=== PATIENT | female | born 1935 | race Caucasian/White ===

== ENCOUNTER → 2018-08-10 | Outpatient (CLI) | payer MEDICARE ==
[~2018-08-10] MED LIST: ARICEPT; ASA 81 MG; ASPI81CH PO; CARI350 PO; CITA20 PO; CLOP75 PO; DIPY75 PO; DONE10 PO; FLUO20 PO; FURO40 PO; GEMF600 PO; HYDPAM50 PO; MICO2TCA TOP; NITR100CA PO; Namenda10 MG PO; OXYACE5T PO; PLAVIX; POTCHL10ER PO; Prozac40 MG PO; SOMA; TRAZ50 PO; TYLENOL ARTHRITIS
== END | disposition home or self-care (01) ==
LOC: PLD 07:21 → LAB SHORT 07:21
DX: L57.0 Actinic keratosis (principal)
CPT/HCPCS: 88305